=== PATIENT | male | born 1970 | race Asian ===

== ENCOUNTER 2022-08-09 13:46 | Emergency (ER) | payer OTHER ==
[~2022-08-09] VITALS: Ht 185.4 cm; Wt 90.7 kg
[2022-08-09 13:52] VITALS: BP_SYST 146
--- NOTE | 2022-08-09 13:55 | NUR ---
Patient to ER bed 7 to gown for evaluation. Side rails up. Report given to ROBI JACOBS.
--- NOTE | 2022-08-09 14:00 | NUR ---
Pt brought in by family from home Chief complaint chest pain squeezing onset one week intermittant radiates to flank posterior left. Pt complains of tingly bilateral upper extremities. Pt complains of nausea without episodes of vomiting. Pt is tachypnic with RR 22 Pt saturates at 97%. AAOx4, speaking full sentences no signs of acute distress.
--- NOTE | 2022-08-09 14:10 | NUR ---
PT medicated per MD order.
--- NOTE | 2022-08-09 14:20 | NUR ---
ER at bedside examining patient.
[2022-08-09] MEDS ORDERED: DIAZEPAM 5 MG TABLET (VALIUM) PO ONE (14:30)
[2022-08-09 14:40] LABS: BASOPHILS % (AUTO) 0.4 % (0.0-2.0); EOSINOPHILS # (AUTO) 0.1 K/uL (0.0-0.4); EOSINOPHILS % (AUTO) 1.3 % (0.0-4.0); HEMATOCRIT 40.9 % (36-54); HEMOGLOBIN 14.8 g/dL (14.0-18.0); LYMPHOCYTES # (AUTO) 1.3 K/uL (1.0-5.5); LYMPHOCYTES % (AUTO) 16.1 % (20.5-51.5); MEAN CORPUSCULAR HEMOGLOBIN 30 pg (27-31); MEAN CORPUSCULAR HGB CONC 36 % (32-36); MEAN CORPUSCULAR VOLUME 84 fL (79.0-98.0); MONOCYTES # (AUTO) 0.3 K/uL (0.0-1.0); MONOCYTES % (AUTO) 4.3 % (1.7-9.3); NEUTROPHILS # (AUTO) 6.2 K/uL (1.8-7.7); NEUTROPHILS % (AUTO) 77.9 % (40.0-70.0); PLATELET COUNT (AUTO) 217 K/uL (130-430); RED CELL DISTRIBUTION WIDTH 12.6 % (9.0-15.0)
[2022-08-09 14:59] LABS: ANION GAP 10 (5-15); CALCIUM 9.1 mg/dL (8.4-11.0); CHLORIDE 102 mmol/L (98-107); CREATININE 1.09 mg/dL (0.55-1.30); GLUCOSE 106 mg/dL (70-99); UREA NITROGEN, BLOOD 14 mg/dL (8-21)
[2022-08-09 15:00] LABS: GFR AFRICAN AMERICAN 92 mL/min (>90)
[2022-08-09 15:06] LABS: ALANINE AMINOTRANSFERASE 25 U/L (12-78); ALBUMIN 3.9 g/dL (3.4-4.8); ASPARTATE AMINOTRANSFERASE 16 U/L (10-37); TOTAL BILIRUBIN 0.4 mg/dL (0.0-1.0)
--- NOTE | 2022-08-09 17:10 | NUR ---
Patient given written and verbal discharge instructions and verbalizes understanding. ER MD Oliva discussed with patient the results and treatment provided. Patient in stable condition. ID arm band removed. Rx of given. Patient educated on pain management and to follow up with PMD. Pain Scale 0/10. Opportunity for questions provided and answered. Medication side effect fact sheet provided.
== END 2022-08-09 18:22 | disposition home or self-care (01) ==
LOC: SED 13:46
DX: R07.9 Chest pain, unspecified (principal); F41.9 Anxiety disorder, unspecified; R06.02 Shortness of breath; Z79.899 Other long term (current) drug therapy
CPT/HCPCS: 36415; 71045; 80053; 84484; 85025; 93005; 99285